=== PATIENT | female | born 1975 | race Caucasian/White ===

== ENCOUNTER 2022-02-27 07:56 | Day surgery (SDC) | payer OTHER ==
[~2022-02-27] VITALS: Ht 165.1 cm; Wt 100.2 kg
[2022-02-27] MEDS ORDERED: LIDOCAINE 2% 100 MG/5 ML UJET TP ONE (09:25)
[2022-02-27] MEDS ORDERED: fentaNYL citrate 0.05 MG/ML VIAL ONE (09:25)
[2022-02-27] MEDS ORDERED: fentaNYL citrate 0.05 MG/ML VIAL IVP ONE (10:35)
== END 2022-02-27 10:15 | disposition home or self-care (01) ==
LOC: MDS 07:56 → MMU 07:57 → MDS 10:15
PROVIDERS: ATTEND Internal Medicine Gastroenterology
DX: Z12.11 Encounter for screening for malignant neoplasm of colon (principal); J45.909 Unspecified asthma, uncomplicated; I10 Essential (primary) hypertension; Z79.899 Other long term (current) drug therapy; Z20.822 Contact with and (suspected) exposure to COVID-19
CPT/HCPCS: 45378; 81025; 87426; J3010